=== PATIENT | female | born 1970 | race Caucasian/White ===

== ENCOUNTER 2018-11-12 04:02 | Inpatient (IN) | payer OTHER ==
[2018-11-12 04:45] LABS: Amphetamine Not Detected (NotDetected); Barbiturates Screen Not Detected (NotDetected); Benzodiazepine Screen Not Detected (NotDetected); Cocaine Metabolite Screen Not Detected (NotDetected); Medtox Control Line Valid? VALID (VALID); Medtox Reader # READER 1; Methadone Not Detected (NotDetected); Methamphetamine Not Detected (NotDetected); Opiate Screen Not Detected (NotDetected); Oxycodone Screen Not Detected (NotDetected); Phencyclidine (PCP) Not Detected (NotDetected); THC/Cannabinoid Screen Not Detected (NotDetected); Tricyclic Screen Not Detected (NotDetected)
[2018-11-12 05:37] LABS: CKMB 5.1 ng/mL (0-6.6)
[2018-11-12] MEDS ORDERED: Loratadine 10 MG TAB PO PRN (08:06)
[2018-11-12] MEDS ORDERED: Sodium Chloride 0.65% Nasal 44 ML BOT EA NARE PRN (08:06)
[2018-11-12] MEDS ORDERED: Eucerin (Mineral Oil/Petrolatum,White) 30 gm Jar TOP PRN (08:06)
[2018-11-12] MEDS ORDERED: Bisacodyl 5 MG TAB PO PRN (08:06)
[2018-11-12] MEDS ORDERED: HYDROcodone/Acetaminophen 5/325 mg Tablet PO PRN (08:06)
[2018-11-12] MEDS ORDERED: Zolpidem Tartrate 5 MG TAB PO PRN (08:06)
[2018-11-12] MEDS ORDERED: Bisacodyl 10 MG SUPP PR PRN (08:06)
[2018-11-12] MEDS ORDERED: hydrALAZINE 20 MG/ML VIAL SLOW IVP PRN (08:06)
[2018-11-12] MEDS ORDERED: Loperamide HCl 2 MG CAP PO PRN (08:06)
[2018-11-12] MEDS ORDERED: Diabetic Tussin 200 MG/10 ML UDCUP PO PRN (08:06)
[2018-11-12] MEDS ORDERED: Artificial Tears 18 DROP/0.9 ML EA EYE PRN (08:06)
[2018-11-12] MEDS ORDERED: Calcium Carbonate 500 MG ChewTAB PO PRN (08:06)
[2018-11-12] MEDS ORDERED: Acetaminophen 325 MG TAB PO PRN (08:06)
[2018-11-12] MEDS ORDERED: Ondansetron ODT 4 MG TAB PO PRN (08:06)
[2018-11-12] MEDS ORDERED: Ondansetron PF 4 MG/2 ML Vial IVP PRN (08:06)
[2018-11-12] MEDS ORDERED: Nitroglycerin 0.4 MG TAB (25 Tab Bottle) SL PRN (08:06)
[2018-11-12] MEDS ORDERED: Cepastat Lozenges 1 LOZ PO PRN (08:06)
[2018-11-12] MEDS ORDERED: Senokot S 8.6-50 MG TAB PO PRN (08:06)
[2018-11-12 08:18] LABS: Troponin I 1.133 ng/mL (< 0.028)
[2018-11-12] MEDS ORDERED: Enoxaparin Sodium 40 MG/0.4 ML SYRINGE SC SCH (09:00)
[2018-11-12 11:41] LABS: Troponin I 1.239 ng/mL (< 0.028)
--- NOTE | 2018-11-12 12:10 | HP ---
PRIMARY CARE PHYSICIAN: [facility]. REASON FOR ADMISSION: Non STEMI type 2, SVT. HISTORY OF PRESENT ILLNESS: A 48-year-old female, who initially evaluated at [facility] for palpitation. The patient reports that last night she was feeling palpitation. She was feeling mild chest discomfort and mild dizziness. She also experienced little bit shortness of breath. This feeling was not going away. She tried to check her blood pressure, but that blood pressure was keep showing error. Subsequently, the patient was brought to the ER by her . In the emergency room, the patient had SVT. The patient was given adenosine 12 mg IV push and subsequently 6 mg and she was converted to normal sinus rhythm. Subsequently, this patient was transferred to our emergency room for further evaluation and treatment. This patient reports that she is drinking more than usual her coffee and she denies any thyroid problems. She is intermittently experiencing palpitation, but this episode was more intense and more prolonged. She denies any UTI symptoms. She denies any orthopnea, PND, or leg swelling. She denies any constipation, diarrhea, melena, or hematochezia. Initially, this patient's troponin was slightly elevated, but subsequently troponin was significantly elevated when I saw this patient in the morning at that time, she was relatively asymptomatic. REVIEW OF SYSTEMS: CONSTITUTIONAL: Negative for weight loss or gain, ability to conduct usual activities. SKIN: Negative for rash, itching. EYES: Negative for double vision, pain. ENT/MOUTH: Negative for nose bleeding, neck stiffness, pain, tenderness. CARDIOVASCULAR: Negative for palpitations, dyspnea on exertion, orthopnea. RESPIRATORY: Negative for shortness of breath, wheezing, cough, hemoptysis, fever or night sweats. GASTROINTESTINAL: Negative for poor appetite, abdominal pain, heartburn, nausea , vomiting, constipation, or diarrhea. GENITOURINARY: Negative for urgency, frequency, dysuria, nocturia. MUSCULOSKELETAL: Negative for pain, swelling. NEUROLOGIC/PSYCHIATRIC: Negative for anxiety, depression. ALLERGY/IMMUNOLOGIC: Negative for skin rash, bleeding tendency. All review of systems reviewed and negative except as mentioned in HPI. PAST MEDICAL HISTORY: Diet controlled diabetes. PAST SURGICAL HISTORY: Reviewed and negative. PAST PSYCHIATRIC HISTORY: Reviewed and negative. SOCIAL HISTORY: The patient is smoking about half pack per day. She denies any alcohol abuse. She denies any other illicit drug abuse. She is . She is taking more caffeinated products. ALLERGIES: PENICILLIN. CURRENT HOME MEDICATIONS: The patient is not taking any prescribed or non-prescribed medication. EMERGENCY ROOM COURSE: At [facility], the patient was given adenosine 12 mg and 6 mg and IV fluid. At our emergency room, the patient is given aspirin. FAMILY HISTORY: No family history of coronary artery disease, stroke, or cancer. PHYSICAL EXAMINATION: VITAL SIGNS: On arrival to [facility], her pulse was 278, respiratory rate 33, temperature 98.3, saturation 98% on room air. Currently in our emergency room, blood pressure 89/46, pulse 82, respiratory rate 20, temperature 98.1, and saturation 95%. GENERAL: The patient is currently alert, oriented x3. No obvious acute distress. HEENT: Head; normocephalic, atraumatic. Eyes; pupils round, reactive to light. Extraocular muscle intact. ENT; oropharynx within normal limits. Moist mucous membranes. No oral lesion. No pharyngeal erythema. No exudate. NECK: Supple. No JVD. No thyromegaly. No carotid bruit. No jugular venous distention. LUNGS: Clear to auscultation without any rhonchi or rales. CARDIAC: S1 and S2 regular. No murmur. No gallop. No rub. ABDOMEN: Soft. Bowel sounds present. Nontender. Nondistended. No organomegaly. No mass. No suprapubic tenderness. BACK: Unremarkable. No CVA tenderness. EXTREMITIES: Upper extremities; passive movement of all joints are normal. Lower extremity, no edema. Good distal pulsation. SKIN: No skin rash. HEMATOLOGICAL: No lymphadenopathy. PSYCHIATRIC: Normal affect. NEUROLOGIC: Nonfocal examination. SIGNIFICANT LABORATORY DATA: Initial EKG with tachycardia showed SVT. Repeat EKG showing normal sinus rhythm without any acute ischemic changes. Chest x-ray based on my review, no acute cardiopulmonary process. CBC; WBC 12.1, hemoglobin 15.6, platelets 329. BMP; sodium 143, potassium 3.6, chloride 110, carbon dioxide 21 , BUN 16, creatinine 0.78, glucose 188, calcium 9.8. LFTs; AST 26, ALT 18, alkaline phosphatase 94, albumin 4.3. BNP 27.0. Cardiac enzymes CK-MB 5.1, and troponin 0.454 and then troponin 1.133. TSH 1.33, magnesium 2.1. Urine drug screen negative. ASSESSMENT AND PLAN: 1. Acute supraventricular tachycardia converted to sinus rhythm after adenosine. This patient has long history of paroxysmal palpitation and currently has known and confirmed supraventricular tachycardia. The patient will need more evaluation. Her thyroid function is normal. I advised her to avoid caffeinated products. At this point, Cardiology will be consulted. Electrophysiology needs to be involved. We will obtain echocardiography. She may need ablation procedure. We will monitor on telemetry floor. We will start metoprolol 25 mg p.o. b.i.d. 2. Hypotension, likely related with episode of supraventricular tachycardia, but currently resolved in the emergency room. She is asymptomatic. We will monitor. 3. Non-ST elevation myocardial infarction type 2, likely due to demand ischemia. We will continue aspirin 325 mg p.o. daily. We will check lipid profile tomorrow morning for risk stratification. Echocardiography will be obtained. Cardiology already consulted. 4. Tobacco abuse disorder. Smoking cessation counseling given healthy lifestyle measure discussed with the patient. 5. Deep venous thrombosis prophylaxis, Lovenox 40 mg subcu daily. Gastrointestinal prophylaxis, Pepcid 20 mg p.o. b.i.d. CODE STATUS: The patient is full code. The patient's is surrogate decision maker. DISPOSITION PLAN: Based on clinical course and Cardiology recommendation. We are expecting the patient to stay in hospital more than 2 midnights. Plan of care discussed with the patient in detail. Job ID: [id number] MTDD
[2018-11-12 16:34] VITALS: BMI 33.7
[2018-11-12] MEDS: Famotidine 20 MG TAB PO SCH ×2 (17:15→20:36)
[2018-11-12] MEDS: Aspirin 325 MG TAB PO SCH (17:15)
[2018-11-12] MEDS ORDERED: HumaLOG 300 UNITS/3 ML VIAL SC PRN ×2 (17:50)
[2018-11-12] MEDS ORDERED: Dextrose 5% in Water 1,000 ML IV PRN (17:50)
[2018-11-12] MEDS ORDERED: Dextrose 50% Abboject 50 ML SYRINGE IVP PRN (17:50)
[2018-11-12] MEDS ORDERED: Sodium Chloride 0.9% 10 ML ONE (20:19)
[2018-11-12] MEDS: Enoxaparin Sodium 40 MG/0.4 ML SYRINGE SC SCH (20:36)
[2018-11-13 06:22] LABS: #Basophils 0.1 thou/uL (0.0-0.2); #Eosinphils 0.1 thou/uL (0.0-0.7); #Lymphocytes 2.7 thou/uL (1.20-3.40); #Monocytes 0.4 thou/uL (0.11-0.59); #Neutrophils 4.5 thou/uL (1.40-6.50); %Basophils 0.8 % (0.0-1.0); %Eosinophils 1.8 % (0.0-10.0); %Lymphocytes 34.8 % (21.0-51.0); %Monocytes 5.3 % (0.0-10.0); %Neutrophils 57.4 % (42.0-75.0); Hemoglobin 14.1 g/dL (12.0-16.0); Mean Corpuscular HGB CONC 33.3 g/dL (32.0-36.0); Mean Corpuscular Hemoglobin 29.9 pg (27.0-31.0); Mean Platelet Volume 7.3 fL (7.4-10.4); Platelet Count 231 thou/uL (130-400); RBC Distribution Width 12.9 % (11.5-14.5); Red Blood Cell (RBC) Count 4.72 mill/uL (4.20-5.40); White Blood Cell (WBC) Count 7.8 thou/uL (4.8-10.8)
[2018-11-13 06:43] LABS: Anion Gap 14 mmol/L (10-20); BUN (Urea Nitrogen) 10 mg/dL (7.0-18.7); Calc. Creatinine Clearance 139 mL/min (70-130); Calcium 9.7 mg/dL (7.8-10.44); Carbon Dioxide 23 mmol/L (22-29); Cardiac Risk 4.2 (Less than 4.5); Chloride 108 mmol/L (98-107); Cholesterol 179 mg/dl (< 200 Desired); Estimated GFR-MDRD Greater than 90; Glucose 101 mg/dL (70-105); HDL Cholesterol 43 mg/dL (>60 Neg Risk); LDL Cholesterol, Calculated 116 mg/dL; Sodium 141 mmol/L (136-145); Triglycerides 99 mg/dL (Less than 150)
[2018-11-13] MEDS: Famotidine 20 MG TAB PO SCH ×2 (08:56→20:37)
[2018-11-13] MEDS: Aspirin 325 MG TAB PO SCH (08:56)
--- NOTE | 2018-11-13 10:15 | CON ---
DATE OF CONSULTATION: HISTORY OF PRESENT ILLNESS: The patient is a very pleasant 48-year-old woman, who presented with rapid palpitations and weakness. The patient has no previous cardiac history. She was in her usual state of health when she suddenly became extremely weak. She reported being mildly dizzy. She presented to the local emergency room with rapid palpitations. She subsequently underwent electrocardioversion and transferred for further evaluation. The patient denies having any further palpitations. She states previously she had brief palpitations. She denies having any previous chest discomfort. PAST MEDICAL HISTORY: Significant for: 1. Diabetes mellitus. 2. Dyslipidemia. 3. Obesity. PAST SURGICAL HISTORY: None. SOCIAL HISTORY: She smokes half pack per day. FAMILY HISTORY: Her father had a myocardial infarction. ALLERGIES: SHE IS ALLERGIC TO PENICILLIN. MEDICATIONS: None. REVIEW OF SYSTEMS: Ten point system otherwise unremarkable. PHYSICAL EXAMINATION: GENERAL: Obese woman, in no acute distress. VITAL SIGNS: Blood pressure was 105/68. NECK: No jugular venous distention. No carotid bruits. LUNGS: Clear to auscultation. HEART: Regular rate and rhythm. Normal S1, S2. No murmurs. ABDOMEN: Nondistended. EXTREMITIES: Showed no edema. VASCULAR: Radial pulse is 2+. LABORATORY RESULTS: White blood cell count was 12.1, hemoglobin 15.6, hematocrit 44.1, and platelets 329. Sodium was 143, potassium 3.6, chloride 110, bicarbonate 21, BUN 16, creatinine 0.73. Troponin was 0.45. BNP 27. IMAGING STUDIES: Initial EKG revealed supraventricular tachycardia with a rate of 270. Followup EKG revealed normal sinus rhythm with a nonspecific ST abnormality. IMPRESSION: 1. Supraventricular tachycardia. 2. Elevated troponin after electrocardioversion. 3. Tobacco abuse. 4. Dyslipidemia. 5. Obesity. PLAN: This patient has a rapid supraventricular tachycardia. The patient will need to undergo EP evaluation for possible SVT with possible accessory pathway. Job ID: [id number]
--- NOTE | 2018-11-13 10:55 | PDOC.PN ---
- Subjective Encounter Start Date: 11/13/18 Encounter Start Time: 07:45 -: old records requested/rev Patient seen and examined. No new complaints. No overnight events - Objective Resuscitation Status - Order Detail: 11/12/18 08:06 Resuscitation Status Routine Resuscitation Status: FULL: Full Resuscitation MAR Reviewed: Yes Vital Signs & Weight: Vital Signs (12 hours) Temp Pulse Resp BP Pulse Ox 11/13/18 08:56 98 11/13/18 08:54 98.9 F 73 18 111/59 L 98 11/13/18 04:00 97.7 F 68 18 103/58 L 97 11/13/18 00:00 97.3 F L 73 15 110/77 95 Weight Weight 178 lb 11.2 oz I&O: 11/12/18 11/13/18 11/14/18 06:59 06:59 06:59 Intake Total 250 Output Total 800 Balance -550 Result Diagrams: 11/13/18 05:49 11/13/18 05:49 Additional Labs: Accuchecks 11/13/18 11/12/18 11/12/18 05:46 20:38 17:27 POC Glucose 102 114 H 96 EKG Reviewed by me: Yes (nsr) Phys Exam - Physical Examination Constitutional: NAD HEENT: PERRLA, moist MMs, sclera anicteric Neck: no JVD, supple Respiratory: no wheezing, no rales, no rhonchi Cardiovascular: RRR, no significant murmur, no rub Gastrointestinal: soft, non-tender, no distention, positive bowel sounds Musculoskeletal: no edema, pulses present Neurological: non-focal, normal sensation, moves all 4 limbs Lymphatic: no nodes Psychiatric: normal affect, A&O x 3 Skin: no rash, normal turgor Dx/Plan (1) NSTEMI (non-ST elevated myocardial infarction) Code(s): I21.4 - NON-ST ELEVATION (NSTEMI) MYOCARDIAL INFARCTION Status: Acute Comment: type-2 due to demand ischemia from SVT (2) SVT (supraventricular tachycardia) Code(s): I47.1 - SUPRAVENTRICULAR TACHYCARDIA Status: Acute (3) Obesity (BMI 30.0-34.9) Code(s): E66.9 - OBESITY, UNSPECIFIED Status: Chronic (4) Tobacco abuse Code(s): Z72.0 - TOBACCO USE Status: Chronic - Plan cont current plan of care * cardiology recommendation appreciated * echo pending result * tomorrow EP study and possible ablation * medication reviewed as below * symptomatic treatment. Review of Systems - Review of Systems ENT: negative: Ear Pain, Ear Discharge, Nose Pain, Nose Discharge, Nose Congestion, Mouth Pain, Mouth Swelling, Throat Pain, Throat Swelling, Other Respiratory: negative: Cough, Dry, Shortness of Breath, Hemoptysis, SOB with Excertion, Pleuritic Pain, Sputum, Wheezing Cardiovascular: negative: chest pain, palpitations, orthopnea, paroxysmal nocturnal dyspnea, edema, light headedness, other Gastrointestinal: negative: Nausea, Vomiting, Abdominal Pain, Diarrhea, Constipation, Melena, Hematochezia, Other Genitourinary: negative: Dysuria, Frequency, Incontinence, Hematuria, Retention , Other Musculoskeletal: negative: Neck Pain, Shoulder Pain, Arm Pain, Back Pain, Hand Pain, Leg Pain, Foot Pain, Other Skin: negative: Rash, Lesions, Peña, Bruising, Other - Medications/Allergies Allergies/Adverse Reactions: Allergies Allergy/AdvReac Type Severity Reaction Status Date / Time Penicillins Allergy Verified 11/12/18 08:30 Medications: Current Medications Acetaminophen (Tylenol) 650 mg PO Q4H PRN PRN Reason: Headache/Fever/Mild Pain (1-3) Hydrocodone Bitart/Acetaminophen ([place] 5/325) 1 tab PO Q4H PRN PRN Reason: Moderate Pain (4-6) Artificial Tears (Tears Naturale) 2 drop EA EYE PRN PRN PRN Reason: Dry Eyes Aspirin (Aspirin) 325 mg PO DAILY [facility] Last Admin: 11/13/18 08:56 Dose: 325 mg Atorvastatin Calcium (Lipitor) 10 mg PO HS [facility] Bisacodyl (Dulcolax) 10 mg PO DAILYPRN PRN PRN Reason: Constipation Bisacodyl (Dulcolax) 10 mg [place] DAILYPRN PRN PRN Reason: Constipation Calcium Carbonate (Tums) 1,000 mg PO Q4H PRN PRN Reason: Heartburn or Indigestion Dextrose/Water (Dextrose 50%) 25 gm IVP PRN PRN PRN Reason: HYPOGLYCEMIA PROTOCOL Enoxaparin Sodium (Lovenox) 40 mg SC 2100 [facility] Last Admin: 11/12/18 20:36 Dose: 40 mg Famotidine (Pepcid) 20 mg PO BID [facility] Last Admin: 11/13/18 08:56 Dose: 20 mg Glucagon (Glucagon) 1 mg IM PRN PRN PRN Reason: HYPOGLYCEMIA PROTOCOL Guaifenesin (Robitussin Sf) 200 mg PO Q4H PRN PRN Reason: Cough Hydralazine HCl (Apresoline) 10 mg SLOW IVP Q4H PRN PRN Reason: SBP > 180 and HR < 70 Dextrose/Water (D5w) 1,000 mls @ 0 mls/hr IV INF PRN PRN Reason: HYPOGLYCEMIA PROTOCOL Insulin Human Lispro (Humalog) 0 units SC .MODERATE SLIDING SC PRN; Protocol PRN Reason: MODERATE SLIDING SCALE Insulin Human Lispro (Humalog) 0 units SC .BEDTIME SLIDING SC PRN; Protocol PRN Reason: BEDTIME SLIDING SCALE Loperamide HCl (Imodium) 2 mg PO PRN PRN PRN Reason: Diarrhea/Loose Stools Loratadine (Claritin) 10 mg PO DAILYPRN PRN PRN Reason: Sinus Symptoms Mineral Oil/White Petrolatum (Eucerin Cream) 0 gm TOP BIDPRN PRN PRN Reason: Dry Skin Nitroglycerin (Nitrostat) 0.4 mg SL Q5MIN PRN PRN Reason: Chest Pain Ondansetron HCl (Zofran Odt) 4 mg PO Q6H PRN PRN Reason: Nausea/Vomiting Ondansetron HCl (Zofran) 4 mg IVP Q6H PRN PRN Reason: Nausea/Vomiting Senna/Docusate Sodium (Senokot S) 2 tab PO BID PRN PRN Reason: Constipation Sodium Chloride ([place] Nasal [place] 0.65%) 0 ml EA NARE QIDPRN PRN PRN Reason: Nasal Congestion Sodium Chloride (Flush - Normal Saline) 10 ml IVF Q12HR [facility] Last Admin: 11/13/18 08:56 Dose: 10 ml Sodium Chloride (Flush - Normal Saline) 10 ml IVF PRN PRN PRN Reason: Saline Flush Throat Lozenges (Cepastat Lozenges) 1 bharat PO Q2H PRN PRN Reason: Sore Throat Zolpidem Tartrate (Ambien) 5 mg PO HSPRN PRN PRN Reason: Insomnia
--- NOTE | 2018-11-13 14:04 | EKG ---
Test Reason : Blood Pressure : / mmHG Vent. Rate : 090 BPM Atrial Rate : 090 BPM P-R Int : 134 ms QRS Dur : 086 ms QT Int : 344 ms P-R-T Axes : 057 041 040 degrees QTc Int : 420 ms Normal sinus rhythm Nonspecific ST abnormality Abnormal ECG Confirmed by EUNICE FREEMAN DO ([id number]), film or videotape editor SAKSHI PEREZ ([id number]) on 11/13/2018 2:04:23 PM Referred By: Confirmed By:EUNICE FREEMAN DO
[2018-11-13] MEDS: Enoxaparin Sodium 40 MG/0.4 ML SYRINGE SC SCH (20:37)
[2018-11-13] MEDS: Atorvastatin Calcium 10 MG TAB PO SCH (20:37)
--- NOTE | 2018-11-14 09:37 | PDOC.PN ---
- Subjective Encounter Start Date: 11/14/18 Encounter Start Time: 07:40 Patient seen and examined. No new complaints. No overnight events - Objective Resuscitation Status - Order Detail: 11/12/18 08:06 Resuscitation Status Routine Resuscitation Status: FULL: Full Resuscitation MAR Reviewed: Yes Vital Signs & Weight: Vital Signs (12 hours) Temp Pulse Resp BP Pulse Ox 11/14/18 04:00 97.9 F 57 L 16 110/59 L 95 Weight Weight 177 lb I&O: 11/13/18 11/14/18 11/15/18 06:59 06:59 06:59 Intake Total 250 510 Output Total 800 3700 Balance -550 -3190 Result Diagrams: 11/13/18 05:49 11/13/18 05:49 Additional Labs: Accuchecks 11/14/18 11/13/18 11/13/18 06:14 20:24 17:27 POC Glucose 96 103 101 11/13/18 11:55 POC Glucose 192 H Radiology Reviewed by me: Yes (echo normal) EKG Reviewed by me: Yes (nsr) Phys Exam - Physical Examination Constitutional: NAD HEENT: PERRLA, moist MMs, sclera anicteric Neck: no JVD, supple Respiratory: no wheezing, no rales, no rhonchi Cardiovascular: RRR, no significant murmur, no rub Gastrointestinal: soft, non-tender, no distention, positive bowel sounds Musculoskeletal: no edema, pulses present Neurological: non-focal, normal sensation, moves all 4 limbs Lymphatic: no nodes Psychiatric: normal affect, A&O x 3 Skin: no rash, normal turgor Dx/Plan (1) NSTEMI (non-ST elevated myocardial infarction) Code(s): I21.4 - NON-ST ELEVATION (NSTEMI) MYOCARDIAL INFARCTION Status: Acute Comment: type-2 due to demand ischemia from SVT (2) SVT (supraventricular tachycardia) Code(s): I47.1 - SUPRAVENTRICULAR TACHYCARDIA Status: Acute (3) Obesity (BMI 30.0-34.9) Code(s): E66.9 - OBESITY, UNSPECIFIED Status: Chronic (4) Tobacco abuse Code(s): Z72.0 - TOBACCO USE Status: Chronic - Plan cont current plan of care * today plan for ablation * medication reviewed as below * symptomatic treatment. Review of Systems - Review of Systems ENT: negative: Ear Pain, Ear Discharge, Nose Pain, Nose Discharge, Nose Congestion, Mouth Pain, Mouth Swelling, Throat Pain, Throat Swelling, Other Respiratory: negative: Cough, Dry, Shortness of Breath, Hemoptysis, SOB with Excertion, Pleuritic Pain, Sputum, Wheezing Cardiovascular: negative: chest pain, palpitations, orthopnea, paroxysmal nocturnal dyspnea, edema, light headedness, other Gastrointestinal: negative: Nausea, Vomiting, Abdominal Pain, Diarrhea, Constipation, Melena, Hematochezia, Other Genitourinary: negative: Dysuria, Frequency, Incontinence, Hematuria, Retention , Other Musculoskeletal: negative: Neck Pain, Shoulder Pain, Arm Pain, Back Pain, Hand Pain, Leg Pain, Foot Pain, Other Skin: negative: Rash, Lesions, Peña, Bruising, Other - Medications/Allergies Allergies/Adverse Reactions: Allergies Allergy/AdvReac Type Severity Reaction Status Date / Time latex Allergy Hives Verified 11/14/18 00:58 Penicillins Allergy Verified 11/12/18 08:30 Medications: Current Medications Acetaminophen (Tylenol) 650 mg PO Q4H PRN PRN Reason: Headache/Fever/Mild Pain (1-3) Hydrocodone Bitart/Acetaminophen ([place] 5/325) 1 tab PO Q4H PRN PRN Reason: Moderate Pain (4-6) Artificial Tears (Tears Naturale) 2 drop EA EYE PRN PRN PRN Reason: Dry Eyes Aspirin (Aspirin) 325 mg PO DAILY [facility] Last Admin: 11/13/18 08:56 Dose: 325 mg Atorvastatin Calcium (Lipitor) 10 mg PO HS [facility] Last Admin: 11/13/18 20:37 Dose: 10 mg Bisacodyl (Dulcolax) 10 mg PO DAILYPRN PRN PRN Reason: Constipation Bisacodyl (Dulcolax) 10 mg [place] DAILYPRN PRN PRN Reason: Constipation Calcium Carbonate (Tums) 1,000 mg PO Q4H PRN PRN Reason: Heartburn or Indigestion Dextrose/Water (Dextrose 50%) 25 gm IVP PRN PRN PRN Reason: HYPOGLYCEMIA PROTOCOL Enoxaparin Sodium (Lovenox) 40 mg SC 2100 [facility] Last Admin: 11/13/18 20:37 Dose: 40 mg Famotidine (Pepcid) 20 mg PO BID [facility] Last Admin: 11/13/18 20:37 Dose: 20 mg Glucagon (Glucagon) 1 mg IM PRN PRN PRN Reason: HYPOGLYCEMIA PROTOCOL Guaifenesin (Robitussin Sf) 200 mg PO Q4H PRN PRN Reason: Cough Hydralazine HCl (Apresoline) 10 mg SLOW IVP Q4H PRN PRN Reason: SBP > 180 and HR < 70 Dextrose/Water (D5w) 1,000 mls @ 0 mls/hr IV INF PRN PRN Reason: HYPOGLYCEMIA PROTOCOL Insulin Human Lispro (Humalog) 0 units SC .MODERATE SLIDING SC PRN; Protocol PRN Reason: MODERATE SLIDING SCALE Insulin Human Lispro (Humalog) 0 units SC .BEDTIME SLIDING SC PRN; Protocol PRN Reason: BEDTIME SLIDING SCALE Loperamide HCl (Imodium) 2 mg PO PRN PRN PRN Reason: Diarrhea/Loose Stools Loratadine (Claritin) 10 mg PO DAILYPRN PRN PRN Reason: Sinus Symptoms Mineral Oil/White Petrolatum (Eucerin Cream) 0 gm TOP BIDPRN PRN PRN Reason: Dry Skin Nitroglycerin (Nitrostat) 0.4 mg SL Q5MIN PRN PRN Reason: Chest Pain Ondansetron HCl (Zofran Odt) 4 mg PO Q6H PRN PRN Reason: Nausea/Vomiting Ondansetron HCl (Zofran) 4 mg IVP Q6H PRN PRN Reason: Nausea/Vomiting Senna/Docusate Sodium (Senokot S) 2 tab PO BID PRN PRN Reason: Constipation Sodium Chloride ([place] Nasal [place] 0.65%) 0 ml EA NARE QIDPRN PRN PRN Reason: Nasal Congestion Sodium Chloride (Flush - Normal Saline) 10 ml IVF Q12HR [facility] Last Admin: 11/13/18 20:38 Dose: 10 ml Sodium Chloride (Flush - Normal Saline) 10 ml IVF PRN PRN PRN Reason: Saline Flush Throat Lozenges (Cepastat Lozenges) 1 bharat PO Q2H PRN PRN Reason: Sore Throat Zolpidem Tartrate (Ambien) 5 mg PO HSPRN PRN PRN Reason: Insomnia
[2018-11-14] MEDS: Famotidine 20 MG TAB PO SCH ×2 (10:34→21:09)
[2018-11-14] MEDS: Aspirin 325 MG TAB PO SCH (10:34)
--- NOTE | 2018-11-14 11:10 | DIS ---
DATE OF ADMISSION: 11/12/2018 DATE OF DISCHARGE: 11/14/2018 PRIMARY CARE PHYSICIAN: Dr. Darrin Gutierrez. DISCHARGE DISPOSITION: Home. PRIMARY DISCHARGE DIAGNOSES: 1. Acute supraventricular tachycardia. 2. Non-ST elevation myocardial infarction type 2 due to problem #1. 3. Dyslipidemia. SECONDARY DISCHARGE DIAGNOSES: 1. Tobacco abuse disorder. 2. Obesity with BMI 33. PRIMARY PROCEDURE/OPERATION: Ablation/EP study. RADIOLOGICAL INVESTIGATION: Chest x-ray normal. Echocardiography normal. SIGNIFICANT LABORATORY DATA: WBC 7.8, hemoglobin 14.1, and platelets 231. Sodium 141, potassium 4.0, BUN 10, creatinine 0.64, calcium 9.7, triglyceride 99, cholesterol 179, LDL 116, and HDL 43. Urine drug screen negative. DISCHARGE MEDICATIONS: 1. Lipitor 10 mg p.o. at bedtime. 2. Aspirin 81 mg p.o. daily. 3. metoprolol 25 mg po daily CONTRAINDICATION: None. CODE STATUS: Full code. INPATIENT CONSULTANTS: Dr. Ye was following while in hospital. [employer] was consulted while in hospital. TEST RESULTS PENDING ON DISCHARGE: None. ALLERGIES: LATEX AND PENICILLIN. DISCHARGE PLAN: Posthospital, the patient will follow up with primary care physician as well as Dr. Ye as instructed. HOSPITAL COURSE: A 48-year-old female with above-mentioned medical problem, who has a recurrent paroxysmal palpitation, and at this time, palpitation was so severe and she was diagnosed with SVT at [facility]. Subsequently, she was transferred to our emergency room. She was treated there with adenosine and she converted to sinus rhythm. She had a significantly abnormal troponin due to SVT. The patient was admitted to telemetry floor. We did echocardiography, which was normal. The patient was evaluated by Cardiology and they decided to perform cardiac electrophysiologic study and possible ablation, which will be done later on today. The patient is seen and examined at bedside today after electrophysiologic procedure. If Cardiology and Electrophysiology are okay, then we will consider discharging her home later on today. Please see my progress note from today for further detail. Job ID: [id number] MTDD
[2018-11-14] MEDS ORDERED: Metoprolol Tartrate 25 MG TAB PO SCH (18:30)
[2018-11-14] MEDS: Enoxaparin Sodium 40 MG/0.4 ML SYRINGE SC SCH (21:09)
[2018-11-14] MEDS: Atorvastatin Calcium 10 MG TAB PO SCH (21:09)
--- NOTE | 2018-11-15 02:49 | CON ---
DATE OF CONSULTATION: ELECTROPHYSIOLOGY CONSULTATION: REASON FOR REQUEST: SVT. HISTORY OF PRESENT ILLNESS: Ms. Jauregui is a 48-year-old female with a history of type 2 diabetes, who came to the hospital with rapid palpitations. She was given adenosine without success and eventually underwent a cardioversion for this. She states she has not had this in the past to this extent to her knowledge. She did undergo an evaluation in the past with echocardiogram by her report. PAST MEDICAL HISTORY: Significant for type 2 diabetes. MEDICATIONS: Her home medicine was aspirin. FAMILY HISTORY: No early coronary artery disease or sudden cardiac . SOCIAL HISTORY: She continues to smoke. She does not drink too excess or use illicit medications. REVIEW OF SYSTEMS: Reviewed. She denies nausea, vomiting, diarrhea, fever or chills, change in vision or hearing, bloody stool or urine, all those were negative and included in the HPI. PHYSICAL EXAMINATION: VITAL SIGNS: She is afebrile. Her pulse is 90, blood pressure is 118/64. HEENT: Pupils are equally round and reactive to light and accommodation. Extraocular movements are intact. Nose; midline septum. No rhinorrhea or epistaxis. Throat moist. No erythema or exudate. NECK: Supple. No lymphadenopathy, JVD, or bruit. HEART: Regular rate and rhythm without murmur, gallop, or rub. LUNGS: Clear to auscultation and percussion bilaterally. ABDOMEN: Soft, nontender, and nondistended. Positive bowel sounds. EXTREMITIES: Without clubbing, cyanosis, or edema. NEUROLOGIC: Cranial nerves 2 through 12 are grossly intact. Motor strength is 5/5 throughout. DIAGNOSTIC DATA: Electrocardiogram; sinus rhythm. Nonspecific ST and T wave changes. Electrocardiogram during tachycardia, very rapid approximately 220 beats per minute, but still narrow complex, likely AV nicole reentry. IMPRESSION: 1. Supraventricular tachycardia, likely AV nicole reentry. 2. Type 2 diabetes. RECOMMENDATIONS: Ms. Jauregui has SVT. We discussed electrophysiology study and ablation including risks, benefits and alternatives personally, she understands and agrees to proceed. We can perform this on Monday if she is still in the hospital; otherwise, this could be scheduled as an outpatient. Job ID: [id number]
[2018-11-15] MEDS: Famotidine 20 MG TAB PO SCH ×2 (08:11→20:44)
[2018-11-15] MEDS: Aspirin 325 MG TAB PO SCH (08:11)
[2018-11-15] MEDS ORDERED: Metoprolol Tartrate 25 MG TAB PO SCH ×2 (09:00→21:00)
--- NOTE | 2018-11-15 11:31 | PDOC.PN ---
- Subjective Encounter Start Date: 11/15/18 Encounter Start Time: 08:15 Patient seen and examined. No new complaints. No overnight events - Objective Resuscitation Status - Order Detail: 11/12/18 08:06 Resuscitation Status Routine Resuscitation Status: FULL: Full Resuscitation MAR Reviewed: Yes Vital Signs & Weight: Vital Signs (12 hours) Temp Pulse Resp BP Pulse Ox 11/15/18 11:24 98.0 F 71 16 129/68 11/15/18 08:00 97 11/15/18 07:42 97.9 F 66 18 119/62 97 11/15/18 04:00 97.6 F 58 L 18 99/56 L 96 11/15/18 00:00 98.0 F 62 18 101/61 96 Weight Weight 174 lb I&O: 11/14/18 11/15/18 11/16/18 06:59 06:59 06:59 Intake Total 510 610 360 Output Total 3700 1250 Balance -3190 -640 360 Result Diagrams: 11/13/18 05:49 11/13/18 05:49 Additional Labs: Accuchecks 11/15/18 11/15/18 11/14/18 11:01 05:38 20:22 POC Glucose 115 H 91 81 11/14/18 11/14/18 16:23 11:10 POC Glucose 101 101 EKG Reviewed by me: Yes (nsr) Phys Exam - Physical Examination Constitutional: NAD HEENT: PERRLA, moist MMs, sclera anicteric Neck: no JVD, supple Respiratory: no wheezing, no rales, no rhonchi Cardiovascular: RRR, no significant murmur, no rub Gastrointestinal: soft, non-tender, no distention, positive bowel sounds Musculoskeletal: no edema, pulses present Neurological: non-focal, normal sensation, moves all 4 limbs Lymphatic: no nodes Psychiatric: normal affect, A&O x 3 Skin: no rash, normal turgor Dx/Plan (1) NSTEMI (non-ST elevated myocardial infarction) Code(s): I21.4 - NON-ST ELEVATION (NSTEMI) MYOCARDIAL INFARCTION Status: Acute Comment: type-2 due to demand ischemia from SVT (2) SVT (supraventricular tachycardia) Code(s): I47.1 - SUPRAVENTRICULAR TACHYCARDIA Status: Acute (3) Obesity (BMI 30.0-34.9) Code(s): E66.9 - OBESITY, UNSPECIFIED Status: Chronic (4) Tobacco abuse Code(s): Z72.0 - TOBACCO USE Status: Chronic - Plan cont current plan of care * medication reviewed as below * symptomatic treatment * tomorrow EP study and possible ablation. Review of Systems - Review of Systems ENT: negative: Ear Pain, Ear Discharge, Nose Pain, Nose Discharge, Nose Congestion, Mouth Pain, Mouth Swelling, Throat Pain, Throat Swelling, Other Respiratory: negative: Cough, Dry, Shortness of Breath, Hemoptysis, SOB with Excertion, Pleuritic Pain, Sputum, Wheezing Cardiovascular: negative: chest pain, palpitations, orthopnea, paroxysmal nocturnal dyspnea, edema, light headedness, other Gastrointestinal: negative: Nausea, Vomiting, Abdominal Pain, Diarrhea, Constipation, Melena, Hematochezia, Other Genitourinary: negative: Dysuria, Frequency, Incontinence, Hematuria, Retention , Other Musculoskeletal: negative: Neck Pain, Shoulder Pain, Arm Pain, Back Pain, Hand Pain, Leg Pain, Foot Pain, Other Skin: negative: Rash, Lesions, Peña, Bruising, Other - Medications/Allergies Allergies/Adverse Reactions: Allergies Allergy/AdvReac Type Severity Reaction Status Date / Time latex Allergy Hives Verified 11/14/18 00:58 Penicillins Allergy Verified 11/12/18 08:30 Medications: Current Medications Acetaminophen (Tylenol) 650 mg PO Q4H PRN PRN Reason: Headache/Fever/Mild Pain (1-3) Hydrocodone Bitart/Acetaminophen ([place] 5/325) 1 tab PO Q4H PRN PRN Reason: Moderate Pain (4-6) Artificial Tears (Tears Naturale) 2 drop EA EYE PRN PRN PRN Reason: Dry Eyes Aspirin (Aspirin) 325 mg PO DAILY [facility] Last Admin: 11/15/18 08:11 Dose: 325 mg Atorvastatin Calcium (Lipitor) 10 mg PO HS [facility] Last Admin: 11/14/18 21:09 Dose: 10 mg Bisacodyl (Dulcolax) 10 mg PO DAILYPRN PRN PRN Reason: Constipation Bisacodyl (Dulcolax) 10 mg [place] DAILYPRN PRN PRN Reason: Constipation Calcium Carbonate (Tums) 1,000 mg PO Q4H PRN PRN Reason: Heartburn or Indigestion Dextrose/Water (Dextrose 50%) 25 gm IVP PRN PRN PRN Reason: HYPOGLYCEMIA PROTOCOL Enoxaparin Sodium (Lovenox) 40 mg SC 2100 [facility] Last Admin: 11/14/18 21:09 Dose: Not Given Famotidine (Pepcid) 20 mg PO BID [facility] Last Admin: 11/15/18 08:11 Dose: 20 mg Glucagon (Glucagon) 1 mg IM PRN PRN PRN Reason: HYPOGLYCEMIA PROTOCOL Guaifenesin (Robitussin Sf) 200 mg PO Q4H PRN PRN Reason: Cough Hydralazine HCl (Apresoline) 10 mg SLOW IVP Q4H PRN PRN Reason: SBP > 180 and HR < 70 Dextrose/Water (D5w) 1,000 mls @ 0 mls/hr IV INF PRN PRN Reason: HYPOGLYCEMIA PROTOCOL Insulin Human Lispro (Humalog) 0 units SC .MODERATE SLIDING SC PRN; Protocol PRN Reason: MODERATE SLIDING SCALE Insulin Human Lispro (Humalog) 0 units SC .BEDTIME SLIDING SC PRN; Protocol PRN Reason: BEDTIME SLIDING SCALE Loperamide HCl (Imodium) 2 mg PO PRN PRN PRN Reason: Diarrhea/Loose Stools Loratadine (Claritin) 10 mg PO DAILYPRN PRN PRN Reason: Sinus Symptoms Metoprolol Tartrate (Lopressor) 12.5 mg PO BID [facility] Mineral Oil/White Petrolatum (Eucerin Cream) 0 gm TOP BIDPRN PRN PRN Reason: Dry Skin Nitroglycerin (Nitrostat) 0.4 mg SL Q5MIN PRN PRN Reason: Chest Pain Ondansetron HCl (Zofran Odt) 4 mg PO Q6H PRN PRN Reason: Nausea/Vomiting Ondansetron HCl (Zofran) 4 mg IVP Q6H PRN PRN Reason: Nausea/Vomiting Senna/Docusate Sodium (Senokot S) 2 tab PO BID PRN PRN Reason: Constipation Sodium Chloride ([place] Nas[place] 0.65%) 0 ml EA NARE QIDPRN PRN PRN Reason: Nasal Congestion Sodium Chloride (Flush - Normal Saline) 10 ml IVF Q12HR [facility] Last Admin: 11/14/18 21:09 Dose: 10 ml Sodium Chloride (Flush - Normal Saline) 10 ml IVF PRN PRN PRN Reason: Saline Flush Throat Lozenges (Cepastat Lozenges) 1 bharat PO Q2H PRN PRN Reason: Sore Throat Zolpidem Tartrate (Ambien) 5 mg PO HSPRN PRN PRN Reason: Insomnia
--- NOTE | 2018-11-15 12:01 | PDOC.CTH ---
Cardiology Progress Note - Subjective EP PROGRESS NOTE: 11/15/2018 Did not discharge last night. Plans to remain for ablation tomorrow instead of OP procedure. No further heart racing, palpitations, chest pain, or dizziness. Feeling well. Started on low dose metoprolol last night but has had some low HR and BP. - Objective Vital Signs Temp Pulse Resp BP Pulse Ox 11/15/18 11:24 98.0 F 71 16 129/68 11/15/18 08:00 97 11/15/18 07:42 97.9 F 66 18 119/62 97 11/15/18 04:00 97.6 F 58 L 18 99/56 L 96 11/15/18 00:00 98.0 F 62 18 101/61 96 Weight 174 lb 11/14/18 11/15/18 11/16/18 06:59 06:59 06:59 Intake Total 510 610 360 Output Total 3700 1250 Balance -3190 -640 360 - Physical Examination General/Neuro: alert & oriented x3, NAD Neck: carotid US brisk, no JVD present Lungs: CTA, unlabored respirations Heart: PMI normal, RRR Abdomen: NT/ND, soft - Telemetry Telemetry Rhythm: SR - Labs Result Diagrams: 11/13/18 05:49 11/13/18 05:49 Troponin/CKMB CK-MB (CK-2) 5.1 ng/mL (0-6.6) 11/12/18 04:36 Troponin I 1.239 ng/mL (< 0.028) H* 11/12/18 10:24 - Assessment/Plan 1. 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 converted with DCCV. Now remains in SR. 2. Tobacco habituation -recommend cessation Will stop metoprolol as she will remain IP for EP study and SVT ablation tomorrow. Discussed risks, benefits, and alternatives. Risks include bleeding, hematoma, arrhythmias, cardiac perforation, and need for pacemaker. She voices understanding and is ready to proceed tomorrow at [address] Julian. NPO after midnight. Likely DC after recovered from ablation tomorrow.
[2018-11-15 15:23] LABS: #Eosinphils 0.2 thou/uL (0.0-0.7); #Monocytes 0.4 thou/uL (0.11-0.59); #Neutrophils 4.8 thou/uL (1.40-6.50); %Basophils 0.6 % (0.0-1.0); %Eosinophils 2.1 % (0.0-10.0); %Lymphocytes 27.3 % (21.0-51.0); Hemoglobin 14.5 g/dL (12.0-16.0); Mean Corpuscular HGB CONC 33.8 g/dL (32.0-36.0); Mean Corpuscular Hemoglobin 29.4 pg (27.0-31.0); Mean Platelet Volume 7.1 fL (7.4-10.4); Platelet Count 249 thou/uL (130-400); RBC Distribution Width 12.4 % (11.5-14.5); Red Blood Cell (RBC) Count 4.94 mill/uL (4.20-5.40); White Blood Cell (WBC) Count 7.4 thou/uL (4.8-10.8)
[2018-11-15 15:47] LABS: Anion Gap 16 mmol/L (10-20); BUN (Urea Nitrogen) 12 mg/dL (7.0-18.7); Calc. Creatinine Clearance 117 mL/min (70-130); Calcium 10.1 mg/dL (7.8-10.44); Carbon Dioxide 23 mmol/L (22-29); Chloride 104 mmol/L (98-107); Estimated GFR-MDRD 84; Glucose 187 mg/dL (70-105); Potassium 4.1 mmol/L (3.5-5.1); Sodium 139 mmol/L (136-145)
[2018-11-15] MEDS: Enoxaparin Sodium 40 MG/0.4 ML SYRINGE SC SCH (20:44)
[2018-11-15] MEDS: Atorvastatin Calcium 10 MG TAB PO SCH (20:44)
[2018-11-16 03:17] VITALS: TEMP 97.7
[2018-11-16] MEDS ORDERED: Heparin 10,000 UNITS/1 ML VIAL ONE (07:14)
[2018-11-16] MEDS ORDERED: Propofol 500 MG/50 ML VIAL ONE (07:19)
[2018-11-16] MEDS ORDERED: Midazolam HCl 2 mg/2 ml Vial ONE (07:19)
[2018-11-16] MEDS ORDERED: KETAMINE 100 MG/ML (5ML VIAL) ONE (07:19)
[2018-11-16] MEDS ORDERED: Fentanyl 100 MCG/2 ML VIAL ONE (07:19)
[2018-11-16] MEDS ORDERED: Isoproterenol 0.2 MG/1 ML AMP ONE ×2 (08:52)
[2018-11-16] MEDS: Aspirin 325 MG TAB PO SCH (10:55)
[2018-11-16] MEDS: Famotidine 20 MG TAB PO SCH (10:55)
--- NOTE | 2018-11-16 11:11 | PDOC.PN ---
- Subjective Encounter Start Date: 11/16/18 Encounter Start Time: 07:40 Patient seen and examined. No new complaints. No overnight events - Objective Resuscitation Status - Order Detail: 11/12/18 08:06 Resuscitation Status Routine Resuscitation Status: FULL: Full Resuscitation MAR Reviewed: Yes Vital Signs & Weight: Vital Signs (12 hours) Temp Pulse Resp BP Pulse Ox 11/16/18 03:13 97.7 F 63 20 103/52 L 97 11/16/18 02:00 97 Weight Weight 175 lb 11.2 oz I&O: 11/15/18 11/16/18 11/17/18 06:59 06:59 06:59 Intake Total 610 2650 Output Total 1250 2700 Balance -640 -50 Result Diagrams: 11/15/18 15:08 11/15/18 15:08 Additional Labs: Accuchecks 11/16/18 11/15/18 11/15/18 05:44 20:05 17:11 POC Glucose 95 97 128 H 11/15/18 11:01 POC Glucose 115 H EKG Reviewed by me: Yes (nsr) Phys Exam - Physical Examination Constitutional: NAD HEENT: PERRLA, moist MMs, sclera anicteric Neck: no JVD, supple Respiratory: no wheezing, no rales, no rhonchi Cardiovascular: RRR, no significant murmur, no rub Gastrointestinal: soft, non-tender, no distention, positive bowel sounds Musculoskeletal: no edema, pulses present Neurological: non-focal, normal sensation, moves all 4 limbs Lymphatic: no nodes Psychiatric: normal affect, A&O x 3 Skin: no rash, normal turgor Dx/Plan (1) NSTEMI (non-ST elevated myocardial infarction) Code(s): I21.4 - NON-ST ELEVATION (NSTEMI) MYOCARDIAL INFARCTION Status: Acute Comment: type-2 due to demand ischemia from SVT (2) SVT (supraventricular tachycardia) Code(s): I47.1 - SUPRAVENTRICULAR TACHYCARDIA Status: Acute (3) Obesity (BMI 30.0-34.9) Code(s): E66.9 - OBESITY, UNSPECIFIED Status: Chronic (4) Tobacco abuse Code(s): Z72.0 - TOBACCO USE Status: Chronic - Plan cont current plan of care, plan discussed w/ family * medication reviewed as below * symptomatic treatment * see my discharge eliezer. Review of Systems - Review of Systems ENT: negative: Ear Pain, Ear Discharge, Nose Pain, Nose Discharge, Nose Congestion, Mouth Pain, Mouth Swelling, Throat Pain, Throat Swelling, Other Respiratory: negative: Cough, Dry, Shortness of Breath, Hemoptysis, SOB with Excertion, Pleuritic Pain, Sputum, Wheezing Cardiovascular: negative: chest pain, palpitations, orthopnea, paroxysmal nocturnal dyspnea, edema, light headedness, other Gastrointestinal: negative: Nausea, Vomiting, Abdominal Pain, Diarrhea, Constipation, Melena, Hematochezia, Other Genitourinary: negative: Dysuria, Frequency, Incontinence, Hematuria, Retention , Other Musculoskeletal: negative: Neck Pain, Shoulder Pain, Arm Pain, Back Pain, Hand Pain, Leg Pain, Foot Pain, Other Skin: negative: Rash, Lesions, Peña, Bruising, Other - Medications/Allergies Allergies/Adverse Reactions: Allergies Allergy/AdvReac Type Severity Reaction Status Date / Time latex Allergy Hives Verified 11/14/18 00:58 Penicillins Allergy Verified 11/12/18 08:30 Medications: Current Medications Acetaminophen (Tylenol) 650 mg PO Q4H PRN PRN Reason: Headache/Fever/Mild Pain (1-3) Hydrocodone Bitart/Acetaminophen ([place] 5/325) 1 tab PO Q4H PRN PRN Reason: Moderate Pain (4-6) Artificial Tears (Tears Naturale) 2 drop EA EYE PRN PRN PRN Reason: Dry Eyes Aspirin (Aspirin) 325 mg PO DAILY [facility] Last Admin: 11/16/18 10:55 Dose: 325 mg Atorvastatin Calcium (Lipitor) 10 mg PO HS [facility] Last Admin: 11/15/18 20:44 Dose: 10 mg Bisacodyl (Dulcolax) 10 mg PO DAILYPRN PRN PRN Reason: Constipation Bisacodyl (Dulcolax) 10 mg [place] DAILYPRN PRN PRN Reason: Constipation Calcium Carbonate (Tums) 1,000 mg PO Q4H PRN PRN Reason: Heartburn or Indigestion Dextrose/Water (Dextrose 50%) 25 gm IVP PRN PRN PRN Reason: HYPOGLYCEMIA PROTOCOL Enoxaparin Sodium (Lovenox) 40 mg SC 2100 [facility] Last Admin: 11/15/18 20:44 Dose: Not Given Famotidine (Pepcid) 20 mg PO BID [facility] Last Admin: 11/16/18 10:55 Dose: 20 mg Glucagon (Glucagon) 1 mg IM PRN PRN PRN Reason: HYPOGLYCEMIA PROTOCOL Guaifenesin (Robitussin Sf) 200 mg PO Q4H PRN PRN Reason: Cough Hydralazine HCl (Apresoline) 10 mg SLOW IVP Q4H PRN PRN Reason: SBP > 180 and HR < 70 Dextrose/Water (D5w) 1,000 mls @ 0 mls/hr IV INF PRN PRN Reason: HYPOGLYCEMIA PROTOCOL Insulin Human Lispro (Humalog) 0 units SC .MODERATE SLIDING SC PRN; Protocol PRN Reason: MODERATE SLIDING SCALE Insulin Human Lispro (Humalog) 0 units SC .BEDTIME SLIDING SC PRN; Protocol PRN Reason: BEDTIME SLIDING SCALE Loperamide HCl (Imodium) 2 mg PO PRN PRN PRN Reason: Diarrhea/Loose Stools Loratadine (Claritin) 10 mg PO DAILYPRN PRN PRN Reason: Sinus Symptoms Mineral Oil/White Petrolatum (Eucerin Cream) 0 gm TOP BIDPRN PRN PRN Reason: Dry Skin Nitroglycerin (Nitrostat) 0.4 mg SL Q5MIN PRN PRN Reason: Chest Pain Ondansetron HCl (Zofran Odt) 4 mg PO Q6H PRN PRN Reason: Nausea/Vomiting Ondansetron HCl (Zofran) 4 mg IVP Q6H PRN PRN Reason: Nausea/Vomiting Senna/Docusate Sodium (Senokot S) 2 tab PO BID PRN PRN Reason: Constipation Sodium Chloride ([place] Nasal [place] 0.65%) 0 ml EA NARE QIDPRN PRN PRN Reason: Nasal Congestion Sodium Chloride (Flush - Normal Saline) 10 ml IVF Q12HR [facility] Last Admin: 11/16/18 11:06 Dose: Not Given Sodium Chloride (Flush - Normal Saline) 10 ml IVF PRN PRN PRN Reason: Saline Flush Throat Lozenges (Cepastat Lozenges) 1 bharat PO Q2H PRN PRN Reason: Sore Throat Zolpidem Tartrate (Ambien) 5 mg PO HSPRN PRN PRN Reason: Insomnia
--- NOTE | 2018-11-16 12:36 | EKG ---
Test Reason : POST ABLATION Blood Pressure : / mmHG Vent. Rate : 062 BPM Atrial Rate : 062 BPM P-R Int : 140 ms QRS Dur : 088 ms QT Int : 408 ms P-R-T Axes : 061 057 020 degrees QTc Int : 414 ms Normal sinus rhythm Normal ECG When compared with ECG of 12-NOV-2018 04:19, No significant change was found Confirmed by YAYA BERG ([id number]) on 11/16/2018 12:36:01 PM Referred By: RIKY Confirmed By:YAYA BERG
--- NOTE | 2018-11-16 12:51 | DIS ---
DATE OF ADMISSION: 11/12/2018 DATE OF DISCHARGE: 11/16/2018 ADDENDUM: Please see my discharge summary dictated on November 14, 2018. Initially, manager spanish recommended that the patient can be discharged home and outpatient electrophysiology study can be done or they can do it on Monday, that is why the patient decided to stay in hospital. The patient underwent electrophysiologic procedure today and after that procedure, the patient will be discharged home. She will continue above-mentioned medication upon discharge. The patient is seen and examined at bedside today. Please see my progress note from today for further detail. Job ID: [id number]
[2018-11-16 15:59] VITALS: BP 108/62
--- NOTE | 2018-11-16 16:09 | OP ---
DATE OF PROCEDURE: 11/16/2018 PROCEDURE PERFORMED: Supraventricular tachycardia ablation. PREOPERATIVE DIAGNOSIS: Supraventricular tachycardia. PROCEDURE DETAILS: The patient came to the EP lab in the postobstructive state. Informed consent was obtained. A time-out was called. The patient was sedated by member of the anesthesia staff. Once the patient was adequately sedated, the right and left femoral regions were prepped and draped in usual sterile fashion. Using a modified Seldinger technique and with ultrasound-guided access, access was obtained x2 in the right femoral vein, and x2 in the left femoral vein. A decapolar catheter was advanced in the right femoral vein and placed in the coronary sinus for left atrial pacing and recording. A quadripolar catheter was advanced in the right femoral vein, placed in the high right atrium. A quadripolar catheter was advanced from the left femoral vein and placed in the right ventricle for pacing and recording, and an octapolar catheter was advanced along the His bundle from the left femoral vein. Baseline recordings were as follows; NJ interval 142, QRS 82 milliseconds, QT interval 359 milliseconds, RR interval was 845 milliseconds, AH interval was 75 milliseconds, HV interval was 50 milliseconds, AV Wenckebach occurred at 270 milliseconds, VA Wenckebach occurred at 278 milliseconds. VA conduction was concentric and decremental. No evidence of bypass tract was present. Aggressive stimulation revealed evidence of slow pathway conduction with pacing, however, no inducible tachycardia. Isoproterenol was given initially with a bolus and then with a continuous drip. The drip was uptitrated to achieve sinus rates above 120 beats per minute. With this, aggressive stimulation did not demonstrate any inducible tachycardias. Based on this and because the patient had documented SVT, a 4-mm tip ablation catheter was advanced and placed into the slow pathway region using fluoroscopy and electrophysiologic guidance as well as the electroanatomical map using the Carto system. Once an adequate signal was obtained, RF energy was delivered with a target wattage of 50 luis and a target temperature of 60 degrees. In the site, junctional rhythms occurred almost immediately and continued for the ablation lesion for the majority of it. A 30-second lesion was delivered and after that, intact conduction remained and the patient tolerated the procedure well. Catheters were, therefore, removed. Sheaths were removed, and hemostasis was obtained with placement of Vascade device. PROCEDURES PERFORMED: Comprehensive EP study, 3D electroanatomical mapping, radiofrequency ablation for supraventricular tachycardia and CSLA recording. CONCLUSIONS: 1. Normal AV and VA conduction. 2. No evidence of bypass tract. 3. No evidence of atrial tachycardia. 4. 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 5. Successful radiofrequency ablation for slow pathway region. RECOMMENDATIONS: The patient will be at bedrest and follow up with Electrophysiology in 4 to 6 weeks. POSTOPERATIVE DIAGNOSIS: Supraventricular tachycardia. COMPLICATIONS: None acute. ESTIMATED BLOOD LOSS: Less than 30 mL. Job ID: [id number]
== END 2018-11-16 14:20 | disposition home or self-care (01) | DRG 273 ==
LOC: ERS 04:02 → ERHOLD 05:33 → OBSVTOIN 05:33 → 2NO 05:48
PROVIDERS: ADMIT Internal Medicine; ATTEND Internal Medicine
PROC: 4A023FZ Measurement of Cardiac Rhythm, Percutaneous Approach (ICD-10-PCS; principal; 2018-11-16)
PROC: 02583ZZ Destruction of Conduction Mechanism, Percutaneous Approach (ICD-10-PCS; 2018-11-16)
PROC: 4A0234Z Measurement of Cardiac Electrical Activity, Percutaneous Approach (ICD-10-PCS; 2018-11-16)
PROC: 02K83ZZ Map Conduction Mechanism, Percutaneous Approach (ICD-10-PCS; 2018-11-16)
DX: I47.1 Supraventricular tachycardia (principal); I21.A1 Myocardial infarction type 2; Z88.0 Allergy status to penicillin; I95.9 Hypotension, unspecified; F17.210 Nicotine dependence, cigarettes, uncomplicated; E11.9 Type 2 diabetes mellitus without complications; E78.5 Hyperlipidemia, unspecified; E66.9 Obesity, unspecified; Z68.33 Body mass index [BMI] 33.0-33.9, adult; Z91.040 Latex allergy status; Z79.82 Long term (current) use of aspirin
CPT/HCPCS: 36415; 36416; 76942; 80048; 80061; 80306; 82553; 83735; 84443; 85025; 93005; 93010; 93306; 93613; 93621; 93623; 93653; 94760; C1730; C1769; J1644; J1650; J2250; J2704; J3010

== ENCOUNTER 2019-12-12 06:44 | Observation (INO) | payer OTHER ==
[2019-12-12] MEDS ORDERED: Magnesium 2 GM/50 ML BAG (IN WATER) ONE (08:05)
[2019-12-12 08:28] LABS: CKMB 1.2 ng/mL (0-6.6)
[2019-12-12] MEDS ORDERED: Digoxin 0.5 MG/2 ML AMP ONE (09:06)
[2019-12-12] MEDS ORDERED: Aspirin 325 MG TAB ONE (09:09)
[2019-12-12] MEDS ORDERED: Acetaminophen 325 MG TAB PO PRN (10:29)
[2019-12-12] MEDS ORDERED: HumaLOG 300 UNITS/3 ML VIAL SC PRN (10:39)
[2019-12-12] MEDS ORDERED: Dextrose 50% Abboject 50 ML SYRINGE SLOW IVP PRN (10:39)
[2019-12-12] MEDS ORDERED: Dextrose 5% in Water 1,000 ML IV PRN (10:39)
[2019-12-12] MEDS ORDERED: Potassium Chloride 20 MEQ TAB PO SCH (11:00)
[2019-12-12 11:19] VITALS: BMI 38.9
[2019-12-12 11:55] LABS: Hemoglobin A1c 5.7 % (4.0-6.0)
[2019-12-12 12:21] LABS: Troponin I 0.105 ng/mL (< 0.028)
--- NOTE | 2019-12-12 13:47 | HP ---
CHIEF COMPLAINT: Palpitations. HISTORY OF PRESENT ILLNESS: This patient is a 49-year-old female with a history of SVT consistent with AVNRT admitted here in October 2018, evaluated by the EP service and underwent ablation. At that time, the patient had adenosine cardioversion initially. The patient apparently sees Dr. Ye and had a followup heart catheterization, which she says was unremarkable. She reports that she has been in her usual state of good health until last night around 10 or 11 o'clock when she was trying to go to bed and she was having some difficulty with that. She then felt some palpitations, similar to what she had before, but on checking her pulse, did not feel like it was all that fast, so she was not too worried about it, tried to go back to sleep. She woke up around 5 to 6 this morning, having a sensation that it was going faster, having a general sense of unwellness and some slight chest discomfort and presented to the emergency department in [place]. There EKG showed supraventricular tachycardia with a rate of 285. Her blood pressure was becoming problematically low and she required direct current cardioversion x1, which resolved her tachycardia. She subsequently was transferred here at this facility. Currently says she feels fine, has no complaints. REVIEW OF SYSTEMS: All other systems reviewed. All pertinent positives and negatives noted in history of present illness. PAST MEDICAL HISTORY: Notable for previously being told she had diet-controlled diabetes, although she is not monitoring that and says she does not typically go to doctors, and the above-mentioned SVT consistent with AVNRT. SURGICAL HISTORY: Cardiac ablation. FAMILY HISTORY: No coronary or cardiac disease noted. SOCIAL HISTORY: The patient quit smoking about 1 year ago. Smoked about 1/2 pack a day prior to that. Has very minimal alcohol use. Denies drugs. She is . She is full code and her would be her surrogate decision maker should that become necessary. ALLERGIES: PENICILLIN. MEDICATIONS: None. PHYSICAL EXAMINATION: VITAL SIGNS: BP 112/69, pulse 67, respirations 16, O2 saturation 98% on room air. GENERAL APPEARANCE: Age-appropriate female, a bit hirsute, otherwise in no distress. Pleasant, cooperative. HEENT: PERRL, no OP lesions. NECK: Supple and symmetric with no lymphadenopathy, JVD, or carotid bruits. HEART: Regular rate and rhythm with no murmurs, gallops, or rubs. LUNGS: Clear to auscultation bilaterally with good chest wall expansion and air exchange. ABDOMEN: Soft, nontender, and nondistended. Positive bowel sounds. No masses. No organomegaly. EXTREMITIES: No cyanosis, clubbing, or edema. PSYCHIATRIC: Normal affect and behavior. NEUROLOGIC: No focal deficits. Cranial nerves intact. She is cognitively intact. LABORATORY DATA: CBC normal. D-dimer less than 0.27. Chemistries: Potassium was 3.4, CO2 of 21, BUN 15, creatinine 0.88, glucose 294, AST 27, ALT is 24. Troponin is 0.042. CK is 46. BNP 41. Chest x-ray is negative. Repeat EKG shows sinus rhythm with normal rate. IMPRESSION AND PLAN: 1. Recurrent supraventricular tachycardia in a patient with a prior ablation in October 2018 with reportedly normal heart catheterization subsequent. She required direct current cardioversion at [place] today and seems to be doing well in maintaining sinus rhythm since that time. She will be placed in telemetry and will consult Electrophysiology team. 2. Chest pain, very likely related to the SVT, very minimal in nature. History of negative heart catheterization. We will go ahead and trend troponins. 3. Severe hyperglycemia, likely has true diabetes at this time. We will check hemoglobin A1c and start sliding scale insulin. 4. Very mild hypokalemia in the setting, would be aggressive until we get that replaced and recheck. 5. Elevated troponin, likely [id number] myocardial infarction type 2 secondary to demand ischemia due to the SVT. Job ID: [id number]
[2019-12-12 15:09] LABS: Troponin I 0.108 ng/mL (< 0.028)
--- NOTE | 2019-12-12 17:32 | CON ---
DATE OF CONSULTATION: 12/12/2019 REASON FOR CONSULTATION: Extremely rapid supraventricular tachycardia. PRIMARY [employer] STUDIES PROFESSOR: Wiley Ye MD HISTORY OF PRESENT ILLNESS: Ms. Jauregui is a very pleasant 49-year-old woman. She has a history of SVT with previous SVT ablation of slow pathway was ablated in 2018. She is doing well up until last night. She said she felt her heart racing. She was able to go to sleep, but when she woke up this morning, she said she felt flushed and hot, did not feel short of breath or chest pain, but this did not feel right. She decided to come to the emergency room. In the emergency room, her heart rate was 285 beats per minute and she was electrically cardioverted. The patient is feeling well now. Otherwise, she has been doing well. No chest pain, pressure, heaviness, or squeezing. MEDICATIONS: Prior to admission, she was on; 1. Aspirin. 2. Atorvastatin. REVIEW OF SYSTEMS: CONSTITUTIONAL: No significant weight gain or loss. VISION: No changes. HEARING: No changes. PULMONARY: No cough or wheezing. GASTROINTESTINAL: No nausea, vomiting, or diarrhea. SKIN: No rashes. FAMILY HISTORY: Noncontributory. SOCIAL HISTORY: She drinks about a pot of coffee a day. She quit smoking. She has gained some weight. PHYSICAL EXAMINATION: GENERAL: This is a pleasant 49-year-old woman, in no distress. VITAL SIGNS: Blood pressure 114/63 and pulse 70. LUNGS: Clear. CARDIAC: Normal S1. Normal S2. ABDOMEN: Soft and nontender. EXTREMITIES: Warm and dry. No clubbing or cyanosis. There is no edema. Peripheral pulses are palpable. PERTINENT LABORATORY DATA: Her troponin level initially was 0.042, followup 0.105. The patient previously had a troponin level of 1.2 with SVT apparently in the 2018. ASSESSMENT: 1. Recurrent supraventricular tachycardia. 2. Myocardial infarction type 2, demand ischemia. 3. Obesity. PLAN: Dr. Crocker is aware of the patient, will likely need to go back to the EP lab tomorrow. Job ID: [id number]
[2019-12-12 18:55] LABS: Troponin I 0.101 ng/mL (< 0.028)
--- NOTE | 2019-12-13 08:28 | CON ---
DATE OF CONSULTATION: 12/12/2019 HISTORY OF PRESENT ILLNESS: I am seeing Ms. 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 Her problems are: 1. Recurrent supraventricular tachycardia. a. Prior history of supraventricular tachycardia prompting EP study and subsequent radiofrequency ablation on 11/16/2018, demonstrating no inducible tachycardia but dual AV nicole physiology and slow pathway modification was performed. b. Recurrent SVT at rate of 285 beats per minute noted with PVA possibly following QRS within 80 milliseconds seen on today, requiring defibrillation. 2. History of preserved LVEF by echo on 11/23/2018 at 50% to 55%. 3. Elevated BMI. ALLERGIES: LATEX AND PENICILLINS. MEDICATIONS: At home included: 1. Aspirin. 2. Lipitor. 3. . SUBJECTIVE: Ms. Jauregui is here with recurrent palpitations starting at 10:00 p.m. last night eventually to the ER, where her heart rates were found to be markedly elevated at [place] at 285 beats per minute and has prior history of not responding to adenosine. She was promptly cardioverted back to sinus rhythm. She remained in sinus rhythm. She denies dizziness or loss of consciousness. No stroke-like symptoms. No neurological deficits. No fever, chills, or cough. OBJECTIVE DATA: VITAL SIGNS: Blood pressure is 113/59, heart rate is 60, respirations 20, and temperature 98.1 degrees Fahrenheit. GENERAL: Alert and oriented woman, in no apparent distress with elevated BMI. NECK: Supple. Jugular veins not distended. CHEST: Coarse without crackles. HEART: Sounds are regular to rate and rhythm. No murmur or gallop. ABDOMEN: Benign. Bowel sounds positive. EXTREMITIES: Lower extremities without edema, clubbing, or cyanosis. Pulses are adequate. NEUROLOGIC: The patient is nonfocal. MUSCULOSKELETAL: Without joint swelling or deformity. SKIN: Without rash. DATABASE: EKG is reviewed. Initial EKG revealing narrow complex tachycardia with ventricular rate of 285 beats per minute. Possible PVA noted following QRS within 60 milliseconds was stopped. LABORATORY DATA: White cell count is 8.6, hemoglobin 13.9, platelet count is 231. D-dimer less than 0.27. Sodium 142, potassium 3.4, BUN is 15, creatinine 0.88, AST and ALT are 27 and 24. ASSESSMENT AND PLAN: Ms. Jauregui is a pleasant 49-year-old woman with prior history of supraventricular tachycardia, now recurrent despite of EP study and slow pathway modification back in 2018. On the other hand, her EP study was not inducible for any arrhythmia. We discussed the potential etiologies of recurrent AV nicole reentrant tachycardia is a possibility but 1:1 conducted atrial flutter also cannot be ruled out. I discussed treatment options considering medical management versus ablation. She prefers a repeat ablation. We will make arrangements to have this performed tomorrow. Risks and benefits discussed. We will proceed as planned. Thank you again for allowing me to participate in the care of this patient. Job ID: [id number] [facility]
[2019-12-13] MEDS ORDERED: FLU VACC QS2019-20(6MOS UP)/PF 60 MCG/0.5 ML SYRINGE IM ONE (09:00)
[2019-12-13] MEDS ORDERED: Heparin (Artline) 500 ML ONE (10:32)
[2019-12-13] MEDS ORDERED: Lidocaine 1% (PF) 30 ML VIAL ONE (10:32)
[2019-12-13 11:02] LABS: BHCG - Serum Negative (NEGATIVE); Pregs Control Background? CLEAR/WHITE (CLR/WHITE); Pregs Control Bar Appear? YES (CONTROL BAR)
[2019-12-13] MEDS ORDERED: Heparin 10,000 UNITS/1 ML VIAL ONE (11:17)
[2019-12-13] MEDS ORDERED: Fentanyl 100 MCG/2 ML VIAL ONE (11:18)
[2019-12-13] MEDS ORDERED: Midazolam HCl 2 mg/2 ml Vial ONE (11:19)
[2019-12-13] MEDS ORDERED: Propofol 1,000 MG/100 ML VIAL IV ONE ×2 (11:19→12:30)
[2019-12-13] MEDS ORDERED: Isoproterenol 0.2 MG/1 ML AMP ONE (12:03)
[2019-12-13] MEDS ORDERED: PROPOFOL 200 MG/20 ML VIAL ONE (12:33)
[2019-12-13] MEDS ORDERED: PHENYLEPHRINE-NS 100 MCG/ML 10 ML SYRINGE ONE (12:33)
[2019-12-13] MEDS ORDERED: Ondansetron HCl/PF 4 MG/2 ML Vial IVP PRN (13:52)
[2019-12-13] MEDS ORDERED: Acetaminophen/Codeine 30-300mg Tablet PO PRN ×2 (15:00)
--- NOTE | 2019-12-13 19:22 | PDOC.HOSPP ---
- Subjective Subjective: Feels fine. No complaints. No CP and no palpitations. - Objective Vital Signs & Weight: Vital Signs (12 hours) Temp Pulse Resp BP Pulse Ox 12/13/19 14:30 97.6 F 73 20 132/72 98 12/13/19 07:26 98.4 F 73 18 115/70 97 Weight Weight 205 lb 14.4 oz I&O: 12/12/19 12/13/19 12/14/19 06:59 06:59 06:59 Intake Total 1415 Output Total 900 700 Balance 515 -700 Additional Labs: Accuchecks 12/13/19 12/13/19 16:12 05:32 POC Glucose 105 116 H - Exam General Appearance: NAD, awake alert Neck: supple, symmetric, no JVD, no thyromegaly, no lymphadenopathy, no carotid bruit Heart: RRR, no murmur, no gallops, no rubs, normal peripheral pulses Respiratory: CTAB, no wheezes, no rales, no ronchi, normal chest expansion, no tachypnea, normal percussion Gastrointestinal: soft, non-tender, non-distended, normal bowel sounds, no palpable masses, no hepatomegaly, no splenomegaly, no bruit Extremities: no cyanosis, no clubbing, no edema Musculoskeletal: normal tone, normal strength, no muscle wasting Psychiatric: normal affect, normal behavior, A&O x 3 Hosp A/P (1) SVT (supraventricular tachycardia) Code(s): I47.1 - SUPRAVENTRICULAR TACHYCARDIA Status: Acute (2) Myocardial infarction Code(s): I21.9 - ACUTE MYOCARDIAL INFARCTION, UNSPECIFIED Status: Acute (3) Hyperglycemia Code(s): R73.9 - HYPERGLYCEMIA, UNSPECIFIED Status: Acute (4) Dyslipidemia Code(s): E78.5 - HYPERLIPIDEMIA, UNSPECIFIED Status: Acute (5) Obesity (BMI 30.0-34.9) Code(s): E66.9 - OBESITY, UNSPECIFIED Status: Chronic - Plan Had recurrent SVT. Ablation today. Blood sugars are better since presentation. A1c was actually good. Does not appear to be DM, but hyperglycemia. NSTEMI type II secondary to tachycardia/svt. Dr. Crocker indicated after procedure that it went well. Likely AFlutter with 2:1 conduction. Good result. Anticipate discharge in am.
--- NOTE | 2019-12-13 19:51 | OP ---
DATE OF PROCEDURE: 12/13/2019 PROCEDURES PERFORMED: Electrophysiology study and radiofrequency ablation. ADDITIONAL REFERRING PHYSICIAN: Dr. Herring. REASON FOR PROCEDURE: Ms. Jauregui is a 49-year-old female with recurrent narrow complex tachycardia, which was repeatedly shock terminated in the ER. She had prior EP study demonstrating no inducible arrhythmia, but slow pathway modification was performed over a year ago. Now had recurrent narrow complex tachycardia with up to 280 millisecond cycle length with differential diagnosis of recurrent reentry type of SVT versus atrial flutter with one-to-one conduction. She is here for EP study and ablation procedure, currently in sinus rhythm. DESCRIPTION OF PROCEDURE: The patient received deep sedation by Anesthesia specialist. After adequate level of sedation achieved, the left and right femoral veins were prepped and draped, and anesthetized using subcutaneous lidocaine. Under ultrasound guidance, the left femoral vein was cannulated x2 with a 6 and 8-Turkmen sheath was used to advance a decapolar and octapolar catheter into the right atrium, right ventricle, His bundle, and CS position. Pacing mapping and recording were performed in each location including pacing the left atrium via the CS. Following findings were noted: Baseline rhythm was sinus rhythm with cycle length 757 milliseconds, VA 112, QRS 52 milliseconds, QT is 356 milliseconds, AH 80, HV 39 milliseconds. With burst atrial pacing, initially we were able to induce no SVT. AV Wenckebach cycle length was 270 milliseconds. Retrograde Wenckebach cycle length was 300 milliseconds, concentric retrograde VA conduction was seen, atrial ERP was measured at 600/220 milliseconds and no dual AV nicole physiology was present. Further burst atrial pacing and ventricular pacing performed on and off Isuprel. We repeatedly induced atrial fibrillation and also atrial fibrillation eventually organized into a typical atrial flutter. Transient nonsustained atypical atrial flutters were also seen, eventually organized into a typical right-sided appearing atrial flutter. Overdrive pacing at the cavotricuspid isthmus entering the tachycardia and the post pacing interval was equal to the tachycardia cycle length was 240 milliseconds. Cavotricuspid isthmus ablation was then performed during atrial flutter with a total of 10 lesions delivered at 10 minutes and 12 seconds. At 40 luis energy via a [employer] SFST catheter advanced via the right femoral vein. Prior to that, 3D map of the right atrium was also obtained, delineating CS and His positions. During the cavotricuspid isthmus ablation, the atrial flutter terminated. Proximal CS pacing was ensued, and we were able to achieve transisthmus time increased up to 150 milliseconds. Transisthmus block was demonstrated by longest transisthmus time adjacent to the ablation line. Atrial flutter was not re-inducible on and off Isuprel. In the end of the case, cardiac silhouette did not change. The catheter was removed. Sheaths were pulled in the labeling specialist with manual pressure to obtain hemostasis. CONCLUSION: 1. Inducible typical isthmus dependent atrial flutter. 2. Normal AV nicole and sinus nicole function. 3. No evidence of accessory pathway. Baseline para-Hisian pacing and concentric retrograde VA conduction. 4. No inducible SVT apart from atrial flutter were seen. 5. Repeated re-inducible atrial fibrillation sustained required shock termination as well. PLAN: Continue monitoring recurrent atrial arrhythmias. Consider medical management for atrial fibrillation versus pulmonary venous isolation. Job ID: [id number]
[2019-12-14 08:15] VITALS: TEMP 97.8
[2019-12-14 12:08] VITALS: BP 120/72
--- NOTE | 2019-12-14 14:36 | DIS ---
DATE OF ADMISSION: 12/12/2019 DATE OF DISCHARGE: 12/14/2019 DISCHARGE DIAGNOSES: 1. Narrow complex supraventricular tachycardia, status post electrical cardioversion with subsequent ablation. 2. Inducible typical isthmus-dependent atrial flutter. 3. Diabetes mellitus, type 2, diet managed. CONSULTATIONS: 1. Dr. Herring with Cardiology Service. 2. Dr. Crocker with Electrophysiology Service. PERTINENT LABORATORY AND X-RAY FINDINGS: Hemoglobin A1c 5.7. Magnesium level 2.3. Troponin I ranged between 0.042 to 0.108. BNP 68. TSH 0.77. Serum beta-hCG negative on 12/13/2019. D-dimer less than 0.27. Portable chest x-ray dated 12/12/2019 showed no acute cardiopulmonary process. HOSPITAL COURSE: The patient initially presented with palpitations and feeling flushed with telemetry and EKG showing evidence of supraventricular tachycardia with heart rates in the 280 range. The patient underwent emergent electrical cardioversion repeatedly in the emergency room and transferred to the telemetry unit. The patient was evaluated by the Electrophysiology Service, undergoing EP study showing an inducible atrial flutter. The patient underwent appropriate ablation therapy without further clinical decompensation. Subsequent telemetry monitoring showed a sinus mechanism without evidence of recurrence with overall heart rates in the 70s. Overall, the patient did remain clinically stable during the hospital course with stable vital signs currently. I have examined the patient at the time of discharge and discussed followup instructions. The patient verbalized understanding and in agreement and ready for discharge on 12/14/2019. DISCHARGE MEDICATIONS: 1. Lipitor 10 mg p.o. at bedtime. 2. Enteric-coated aspirin 81 mg p.o. daily. 3. Nitroglycerin 0.4 mg sublingually q.5 minutes p.r.n. chest pain. FOLLOWUP: The patient may follow up with her primary care provider, Dr. Darrin Gutierrez, within 7 days of discharge. The patient will follow up with Dr. Crocker with Electrophysiology Service and to call his office for appointment, time, and date. CONDITION ON DISCHARGE: Stable. ACTIVITY: Ad-elena. DIET: Heart healthy and ADA. CODE STATUS: Full. DISPOSITION: Home on 12/14/2019. Job ID: [id number]
--- NOTE | 2019-12-14 15:33 | EKG ---
Test Reason : V TACH Blood Pressure : / mmHG Vent. Rate : 093 BPM Atrial Rate : 093 BPM P-R Int : 136 ms QRS Dur : 084 ms QT Int : 352 ms P-R-T Axes : 050 030 026 degrees QTc Int : 437 ms Normal sinus rhythm Nonspecific T wave abnormality Abnormal ECG Confirmed by MARTA ELIZABETH, CARINE ([id number]), acquisitions editor YOHANNES PAREDES ([id number]) on 12/14/2019 3:32:53 PM Referred By: Confirmed By:CARINE LOZANO MD
--- NOTE | 2019-12-17 10:31 | EKG ---
Test Reason : POST ABLATION Blood Pressure : / mmHG Vent. Rate : 071 BPM Atrial Rate : 071 BPM P-R Int : 128 ms QRS Dur : 084 ms QT Int : 390 ms P-R-T Axes : 034 049 015 degrees QTc Int : 423 ms Normal sinus rhythm Normal ECG When compared with ECG of 12-DEC-2019 06:50, (Unconfirmed) Nonspecific T wave abnormality no longer evident in Anterior leads Confirmed by ANH RAIN (2) on 12/17/2019 10:31:09 AM Referred By: MILLY Confirmed By:ANH RAIN
--- NOTE | 2019-12-17 10:33 | EKG ---
Test Reason : A.M. Blood Pressure : / mmHG Vent. Rate : 070 BPM Atrial Rate : 070 BPM P-R Int : 136 ms QRS Dur : 082 ms QT Int : 394 ms P-R-T Axes : 053 044 016 degrees QTc Int : 425 ms Normal sinus rhythm Normal ECG When compared with ECG of 13-DEC-2019 14:08, (Unconfirmed) No significant change was found Confirmed by ANH RAIN (2) on 12/17/2019 10:33:13 AM Referred By: Zev ATKINS Confirmed By:ANH RAIN
== END 2019-12-14 14:51 | disposition home or self-care (01) ==
LOC: ERS 06:44 → 2SW 08:32
PROVIDERS: ADMIT Internal Medicine; ATTEND Internal Medicine
PROC: 4A023FZ Measurement of Cardiac Rhythm, Percutaneous Approach (ICD-10-PCS; principal; 2019-12-14)
PROC: 4A0234Z Measurement of Cardiac Electrical Activity, Percutaneous Approach (ICD-10-PCS; 2019-12-14)
PROC: 02583ZZ Destruction of Conduction Mechanism, Percutaneous Approach (ICD-10-PCS; 2019-12-14)
DX: I47.1 Supraventricular tachycardia (principal); I48.3 Typical atrial flutter; E11.65 Type 2 diabetes mellitus with hyperglycemia; I21.A1 Myocardial infarction type 2; E87.6 Hypokalemia; E66.9 Obesity, unspecified; Z68.38 Body mass index [BMI] 38.0-38.9, adult; Z79.82 Long term (current) use of aspirin; Z79.899 Other long term (current) drug therapy; Z87.891 Personal history of nicotine dependence; Z88.0 Allergy status to penicillin; Z91.041 Radiographic dye allergy status
CPT/HCPCS: 36415; 36416; 76942; 82550; 82553; 83036; 83735; 83880; 84443; 84484; 84703; 85379; 90471; 90686; 93005; 93010; 93613; 93621; 93623; 93653; 93655; 96365; 96375; C1730; C1732; C1769; G0008; G0378; J1160; J1644; J2001; J2250; J2704; J3010; J3475

== ENCOUNTER 2023-09-27 01:35 | Inpatient (IN) | payer BC, OTHER ==
[2023-09-27] MEDS ORDERED: Amiodarone 150 MG/3 ML VIAL ONE (01:54)
[2023-09-27] MEDS ORDERED: Amiodarone 450 MG, Admixture Fee 1 EACH in Dextrose 5% in Water 250 ML IVPB SCH (02:15)
[2023-09-27 02:18] LABS: #Monocytes 0.5 thou/uL (0.11-0.59); #Neutrophils 9.2 thou/uL (1.40-6.50); %Basophils 0.3 % (0.0-1.0); %Eosinophils 0.3 % (0.0-10.0); %Lymphocytes 14.5 % (21.0-51.0); %Neutrophils 80.5 % (42.0-75.0); Hematocrit 38.8 % (36.0-47.0); Mean Corpuscular HGB CONC 33.5 g/dL (32.0-36.0); Mean Corpuscular Hemoglobin 28.5 pg (27.0-31.0); Mean Corpuscular Volume 85.1 fl (78.0-98.0); Mean Platelet Volume 9.5 fL (7.4-10.4); Platelet Count 323 10x3/uL (130-400); RBC Distribution Width 13.8 % (11.5-14.5); Red Blood Cell (RBC) Count 4.56 mill/uL (4.20-5.40); White Blood Cell (WBC) Count 11.5 10x3/uL (4.8-10.8)
[2023-09-27] MEDS ORDERED: Ondansetron PF 4 MG/2 ML Vial ONE (02:28)
[2023-09-27 02:44] LABS: Troponin I 0.124 ng/mL (< 0.028)
[2023-09-27 02:46] LABS: ALT (SGPT) 75 U/L (8-55); AST (SGOT) 78 U/L (5-34); Albumin 4.5 g/dL (3.5-5.0); Alkaline Phosphatase 119 U/L (40-110); Anion Gap 18 mmol/L (10-20); BUN (Urea Nitrogen) 12 mg/dL (9.8-20.1); Bilirubin, Total 0.4 mg/dL (0.2-1.2); Calc. Creatinine Clearance 0 mL/min (70-130); Calcium 8.9 mg/dL (7.8-10.44); Carbon Dioxide 20 mmol/L (22-29); Chloride 104 mmol/L (98-107); Estimated GFR 75; Globulin 2.2 g/dL (2.4-3.5); Glucose 320 mg/dL (70-105); Potassium 4.1 mmol/L (3.5-5.1); Protein, Total 6.7 g/dL (6.0-8.3); Sodium 138 mmol/L (136-145)
[2023-09-27 03:28] LABS: INR-International Normal Ratio 0.9; PTT 22.9 sec (22.9-36.1); Prothrombin Time 12.9 sec (12.0-14.7)
[2023-09-27] MEDS ORDERED: Acetaminophen 650 MG Suppository PR PRN (03:31)
[2023-09-27] MEDS ORDERED: Acetaminophen 325 MG TAB PO PRN (03:31)
[2023-09-27] MEDS ORDERED: Ondansetron ODT 4 MG TAB PO PRN (03:31)
[2023-09-27] MEDS ORDERED: Ondansetron PF 4 MG/2 ML Vial IVP PRN (03:31)
[2023-09-27] MEDS ORDERED: Sodium Chloride 0.9% 1,000 ML IV SCH (03:45)
[2023-09-27] MEDS ORDERED: Metoprolol Tartrate 5 MG/5 ML VIAL IVP PRN (03:47)
[2023-09-27] MEDS ORDERED: Dextrose 5% in Water 1,000 ML IV PRN (04:32)
[2023-09-27] MEDS ORDERED: Glucagon 1 MG/ML KIT IM PRN (04:32)
[2023-09-27] MEDS ORDERED: Dextrose 50% Abboject 50 ML SYRINGE SLOW IVP PRN (04:32)
[2023-09-27] MEDS ORDERED: Aspirin 325 mg Enteric Coated Tablet PO SCH (04:45)
[2023-09-27] MEDS ORDERED: Electrolyte Replacement Protocol 1 EACH FS SCH (05:00)
[2023-09-27 05:13] LABS: Magnesium 1.8 mg/dL (1.6-2.6)
[2023-09-27] MEDS: HumaLOG 300 UNITS/3 ML VIAL SC PRN ×4 (06:17→20:52)
[2023-09-27 06:28] LABS: Troponin I 0.599 ng/mL (< 0.028)
[2023-09-27 06:45] LABS: Bacteria/HPF None Seen HPF (None Seen); Bilirubin Negative (Negative); Blood, Urine Negative (Negative); Clarity Clear (Clear); Glucose, Urine (Dipstick) Greater than 1000 mg/dL (Negative); Ketone, Urine 40 mg/dL (Negative); Leukocyte Negative Leu/uL (Negative); Nitrite Negative (Negative); Protein, Urine (Dipstick) Negative (Neg-Trace); RBC/HPF 0-3 HPF (0-3); Specific Gravity, Urine 1.024 (1.002-1.036); Squamous Epithelial 0-3 HPF (0-3); Urobilinogen Normal mg/dL (Less than 2); WBC/HPF None Seen HPF (0-3)
[2023-09-27] MEDS: Sodium Chloride 0.9% 1,000 ML IV SCH ×2 (06:47→16:27)
[2023-09-27] MEDS ORDERED: Magnesium 2 GM/50 ML(in water) 2 GM in Premix 1 BAG IVPB SCH (08:00)
[2023-09-27 08:42] LABS: Troponin I 0.753 ng/mL (< 0.028)
[2023-09-27] MEDS: Famotidine/PF 20 mg/2ml Vial SLOW IVP SCH ×2 (08:45→20:54)
[2023-09-27] MEDS ORDERED: Carvedilol 6.25 MG TAB PO SCH (09:30)
[2023-09-27] MEDS: Carvedilol 6.25 MG TAB PO SCH (16:17)
[2023-09-27 20:39] VITALS: BMI 42.1
[2023-09-27] MEDS ORDERED: Insulin Glargine 30 UNITS/0.3 ML VIAL SC SCH (21:00)
[2023-09-27] MEDS ORDERED: Atorvastatin Calcium 10 MG TAB PO SCH (21:00)
[2023-09-28 03:40] LABS: #Eosinphils 0.1 thou/uL (0.0-0.7); #Monocytes 0.4 thou/uL (0.11-0.59); #Neutrophils 3.4 thou/uL (1.40-6.50); %Basophils 0.7 % (0.0-1.0); %Eosinophils 1.2 % (0.0-10.0); %Lymphocytes 34.9 % (21.0-51.0); %Monocytes 6.4 % (0.0-10.0); %Neutrophils 56.6 % (42.0-75.0); Hemoglobin 11.8 g/dL (12.0-16.0); Mean Corpuscular HGB CONC 32.8 g/dL (32.0-36.0); Mean Corpuscular Volume 85.3 fl (78.0-98.0); Mean Platelet Volume 9.3 fL (7.4-10.4); Platelet Count 241 10x3/uL (130-400); Red Blood Cell (RBC) Count 4.22 mill/uL (4.20-5.40)
[2023-09-28 04:08] LABS: ALT (SGPT) 51 U/L (8-55); AST (SGOT) 42 U/L (5-34); Albumin 3.8 g/dL (3.5-5.0); Alkaline Phosphatase 82 U/L (40-110); Anion Gap 13 mmol/L (10-20); BUN (Urea Nitrogen) 11 mg/dL (9.8-20.1); Bilirubin, Total 0.3 mg/dL (0.2-1.2); Calc. Creatinine Clearance 131 mL/min (70-130); Calcium 8.5 mg/dL (7.8-10.44); Carbon Dioxide 24 mmol/L (22-29); Cardiac Risk 3.1 (Less than 4.5); Chloride 107 mmol/L (98-107); Cholesterol 119 mg/dl (< 200 Desired); Estimated GFR 89; Globulin 2.3 g/dL (2.4-3.5); Glucose 237 mg/dL (70-105); HDL Cholesterol 38 mg/dL (>60 Neg Risk); LDL Cholesterol, Calculated 63 mg/dL; Potassium 3.7 mmol/L (3.5-5.1); Protein, Total 6.1 g/dL (6.0-8.3); Sodium 140 mmol/L (136-145); Triglycerides 88 mg/dL (Less than 150)
[2023-09-28] MEDS: HumaLOG 300 UNITS/3 ML VIAL SC PRN (06:37)
[2023-09-28] MEDS: Carvedilol 6.25 MG TAB PO SCH ×2 (08:32→16:58)
[2023-09-28] MEDS: Famotidine/PF 20 mg/2ml Vial SLOW IVP SCH (08:33)
[2023-09-28] MEDS ORDERED: Aspirin 81 mg Enteric Coated Tablet PO SCH (09:00)
[2023-09-28] MEDS: Dronedarone HCl 400 MG TAB PO SCH ×2 (11:01→16:58)
[2023-09-28 11:57] VITALS: BP 126/88; TEMP 97.8
[2023-09-28] MEDS ORDERED: Dronedarone HCl 400 MG TAB PO SCH (17:00)
[2023-09-28] MEDS ORDERED: Rivaroxaban 10 MG TAB PO SCH (18:00)
== END 2023-09-28 17:15 | disposition home or self-care (01) | DRG 281 ==
LOC: ERS 01:35 → CCU 03:28 → 2SE 09-28 10:33
PROVIDERS: ADMIT Student in an Organized Health Care Education/Training Program; ATTEND Family Medicine
DX: I48.92 Unspecified atrial flutter (principal); I21.A1 Myocardial infarction type 2; Z68.41 Body mass index [BMI] 40.0-44.9, adult; Z91.040 Latex allergy status; Z88.0 Allergy status to penicillin; Z79.82 Long term (current) use of aspirin; Z79.899 Other long term (current) drug therapy; E78.00 Pure hypercholesterolemia, unspecified; Z98.890 Other specified postprocedural states; Z87.891 Personal history of nicotine dependence; E78.5 Hyperlipidemia, unspecified; R74.01 Elevation of levels of liver transaminase levels; D72.829 Elevated white blood cell count, unspecified; E66.01 Morbid (severe) obesity due to excess calories; E83.42 Hypomagnesemia; Z82.49 Family history of ischemic heart disease and other diseases of the circulatory system; I48.0 Paroxysmal atrial fibrillation; E11.65 Type 2 diabetes mellitus with hyperglycemia
CPT/HCPCS: 36415; 36416; 71045; 71275; 76705; 80053; 80061; 81001; 83036; 83735; 84443; 84484; 85025; 85610; 85730; 93005; 93010; 93306; 96365; 96366; 96375; 96376; J0282; J1650; J1815; J2405; J3475; J7050; J7070; S0028

== ENCOUNTER 2023-12-25 06:07 | Day surgery (SDC) | payer BC ==
[2023-12-22 09:26] VITALS: BMI 41.5
[2023-12-22 10:35] LABS: Hematocrit 42.4 % (34.9-44.5); Hemoglobin 13.9 g/dL (12.0-15.5); Mean Corpuscular HGB CONC 32.8 g/dL (32.0-36.0); Mean Corpuscular Hemoglobin 27.4 pg (27.0-33.0); Mean Corpuscular Volume 83.6 fl (81.6-98.3); Mean Platelet Volume 9.4 fl (7.4-10.4); Platelet Count 290 10x3/uL (150-450); Red Blood Cell (RBC) Count 5.07 10x6/uL (3.90-5.03)
[2023-12-22 10:54] LABS: INR-International Normal Ratio 1.2; PTT 45.3 sec (22.0-33.0)
[2023-12-22 10:59] LABS: Anion Gap 14 mmol/L (10-20); BUN (Urea Nitrogen) 13 mg/dL (9.8-20.1); Calc. Creatinine Clearance 138 mL/min (70-130); Calcium 9.7 mg/dL (7.8-10.44); Carbon Dioxide 24 mmol/L (22-29); Chloride 107 mmol/L (98-107); Estimated GFR 96; Glucose 108 mg/dL (70-105); Potassium 4.3 mmol/L (3.5-5.1); Sodium 141 mmol/L (136-145)
[2023-12-25] MEDS ORDERED: fentaNYL 50 mcg/mL 1 mL Vial ONE ×3 (06:43→11:03)
[2023-12-25] MEDS ORDERED: Heparin 10,000 UNITS/ 10 ML VIAL ONE (06:57)
[2023-12-25] MEDS ORDERED: Isoproterenol 0.2 MG/1 ML AMP ONE (06:58)
[2023-12-25] MEDS ORDERED: Protamine Sulfate 50 MG/5 ML VIAL ONE (06:58)
[2023-12-25] MEDS ORDERED: Heparin 25,000 units/D5W 500 ML ONE (06:58)
[2023-12-25] MEDS ORDERED: Dexamethasone 20 MG/5 ML VIAL ONE (07:03)
[2023-12-25] MEDS ORDERED: PHENYLEPHRINE-NS 100 MCG/ML 10 ML SYRINGE ONE (07:03)
[2023-12-25] MEDS ORDERED: Ondansetron PF 4 MG/2 ML Vial ONE (07:03)
[2023-12-25] MEDS ORDERED: Rocuronium Bromide 10 MG/ML (10ML VIAL) ONE (07:03)
[2023-12-25] MEDS ORDERED: Lidocaine 1% PF 5 ML VIAL ONE (07:03)
[2023-12-25] MEDS ORDERED: PROPOFOL 200 MG/20 ML VIAL ONE (07:03)
== END 2023-12-25 15:45 | disposition home or self-care (01) ==
LOC: SDC 06:07
PROVIDERS: ATTEND Internal Medicine Cardiovascular Disease
PROC: 4A0274Z Measurement of Cardiac Electrical Activity, Via Natural or Artificial Opening (ICD-10-PCS; principal; 2023-12-25)
DX: I48.0 Paroxysmal atrial fibrillation (principal); I48.92 Unspecified atrial flutter; Z91.040 Latex allergy status; Z88.0 Allergy status to penicillin; Z88.8 Allergy status to other drugs, medicaments and biological substances; Z87.891 Personal history of nicotine dependence
CPT/HCPCS: 80048; 85027; 85347; 85610; 85730; 93005; 93623; 93655; 93656; 93657; C1732; C1759; C1760; C1894; J1100; J1644; J2405; J2704; J2720; J3010